=== PATIENT | female | born 1935 | race Asian ===

== ENCOUNTER 2017-07-02 09:15 | Emergency (ER) | payer MEDICARE, OTHER ==
[~2017-07-02] VITALS: Ht 144.8 cm; Wt 52.3 kg
[2017-07-02 09:37] VITALS: TEMP 97.9
[2017-07-02] MEDS ORDERED: NORVASC 10MG10 MG PO (09:41)
[2017-07-02] MEDS ORDERED: SINGULAIR 110 MG/TAB PO (09:41)
[2017-07-02] MEDS ORDERED: PROTONIX 40MG T40 MG PO (09:41)
[2017-07-02] MEDS ORDERED: ZYRTEC 10MG10 MG PO (09:41)
[2017-07-02 09:55] LABS: COLLECTION METHOD CLEAN CATCH
[2017-07-02 10:01] LABS: PH 6 (5-8); SQUAMOUS EPITHELIAL 0-2 /hpf; URINE APPEARANCE Clear; URINE BACTERIA None Seen /hpf; URINE BILIRUBIN Negative (NEGATIVE); URINE BLOOD Negative (NEGATIVE); URINE COLOR Yellow; URINE GLUCOSE Negative (NEGATIVE); URINE KETONE Negative (NEGATIVE); URINE LEUKOCYTE ESTERASE Negative (NEGATIVE); URINE NITRATE Negative (NEGATIVE); URINE PROTEIN(semi-quant) Negative (NEGATIVE); URINE RBC None Seen /hpf; URINE UROBILINOGEN Negative (NEGATIVE)
[2017-07-02 12:16] VITALS: BP 150/70; PULSE 75
== END 2017-07-02 12:17 | disposition home or self-care (01) ==
LOC: COL.ER 09:15
PROVIDERS: Emergency Medicine
DX: R10.2 Pelvic and perineal pain (principal); Z90.710 Acquired absence of both cervix and uterus

== ENCOUNTER 2021-12-10 16:50 | Emergency (ER) | payer MEDICARE, OTHER ==
[~2021-12-10] VITALS: Ht 144.8 cm; Wt 56.4 kg
[~2021-12-10 16:50] MED LIST: NORVASC 10MG10 MG PO; PROTONIX 40MG T40 MG PO; SINGULAIR 110 MG/TAB PO; ZYRTEC 10MG10 MG PO
[2021-12-10 17:21] VITALS: TEMP 99.1
[2021-12-10 17:46] LABS: BASO % 0.3 % (0.0-2.0); EOS % 0.1 % (0.0-4.0); GRAN # 7.5 K/mm3 (1.4-6.5); GRAN % 79.6 % (42.2-75.2); HEMATOCRIT 33.7 % (37.0-47.0); HEMOGLOBIN 11.4 g/dl (12.5-16.0); LYMPH # 1.2 K/mm3 (1.2-3.4); MEAN CELL VOLUME 83 fl (80.0-100.0); MEAN CORPUSCULAR HEMOGLOBIN 28 pg (27-31); MEAN CORPUSCULAR HGB CONC 34 g/dl (33.0-37.0); MEAN PLATELET VOLUME 8.9 fl (7.4-10.4); MONO # 0.6 K/mm3 (0.1-0.6); MONO % 6.7 % (1.7-9.3); PLATELET COUNT 228 K/mm3 (130-400); RED BLOOD COUNT 4.04 M/mm3 (4.10-5.30); REDCELL DISTRIBUTION WIDTH-CV 14.3 % (11.5-14.5)
[2021-12-10 18:15] LABS: ALBUMIN 4.1 gm/dL (3.4-4.8); BILIRUBIN,TOTAL 0.3 mg/dL (0.2-1.2); C-REACTIVE PROTEIN 2.9 mg/dL (0.00-0.50); CALCIUM 9.3 mg/dL (8.4-10.2); CREATININE, serum 1.18 mg/dL (0.57-1.11); TOTAL PROTEIN 8.2 gm/dL (6.2-8.1)
[2021-12-10] MEDS ORDERED: NORCO 325 MG-51 TAB PO (19:26)
[2021-12-10 19:58] VITALS: BP 122/77; PULSE 86
== END 2021-12-10 19:58 | disposition home or self-care (01) ==
LOC: COL.ER 16:50
PROVIDERS: Emergency Medicine
DX: R10.84 Generalized abdominal pain (principal); R19.7 Diarrhea, unspecified; Z90.49 Acquired absence of other specified parts of digestive tract; Z28.310 Unvaccinated for COVID-19
CPT/HCPCS: J2270; J2405; J7030; Q9967